=== PATIENT | male | born 1980 | race Native Hawaiian/Other Pacific Islander ===

== ENCOUNTER 2021-01-07 03:15 | Emergency (ER) | payer OTHER ==
[~2021-01-07] VITALS: Ht 182.9 cm; Wt 77.1 kg
[2021-01-07 04:10] LABS: PLATELET COUNT 334 K/uL (142-355)
[2021-01-07 04:14] LABS: POTASSIUM 3.2 mmol/L (3.6-5.2)
[2021-01-07 05:45] VITALS: BP 123/76
== END 2021-01-07 06:10 | disposition short-term general hospital (02) ==
LOC: ED 03:21
PROVIDERS: Family Medicine
PROC: 0W9900Z Drainage of Right Pleural Cavity with Drainage Device, Open Approach (ICD-10-PCS; principal; 2021-01-07)
PROC: 0T9B70Z Drainage of Bladder with Drainage Device, Via Natural or Artificial Opening (ICD-10-PCS; 2021-01-07)
DX: S27.0XXA Traumatic pneumothorax, initial encounter (principal); S42.191A Fracture of other part of scapula, right shoulder, initial encounter for closed fracture; S22.41XA Multiple fractures of ribs, right side, initial encounter for closed fracture; S32.018A Other fracture of first lumbar vertebra, initial encounter for closed fracture; S32.028A Other fracture of second lumbar vertebra, initial encounter for closed fracture; S32.038A Other fracture of third lumbar vertebra, initial encounter for closed fracture; S32.048A Other fracture of fourth lumbar vertebra, initial encounter for closed fracture; S32.058A Other fracture of fifth lumbar vertebra, initial encounter for closed fracture; S01.81XA Laceration without foreign body of other part of head, initial encounter; V57.0XXA Driver of pick-up truck or van injured in collision with fixed or stationary object in nontraffic accident, initial encounter; Y92.89 Other specified places as the place of occurrence of the external cause
CPT/HCPCS: 36415; 51702; 80053; 80307; 80320; 81000; 85027; 96360; 96361; 96365; 96374; 96375; 99285; J2270; J2543; J7040

== ENCOUNTER 2021-01-20 19:21 | Emergency (ER) | payer OTHER ==
[~2021-01-20] VITALS: Ht 182.9 cm; Wt 102.1 kg
[2021-01-20 19:45] VITALS: TEMP 98.1
[2021-01-20 21:30] VITALS: BP 132/78
== END 2021-01-20 21:30 | disposition home or self-care (01) ==
LOC: ED 19:21
DX: S22.41XA Multiple fractures of ribs, right side, initial encounter for closed fracture (principal); N20.0 Calculus of kidney
CPT/HCPCS: 96372; 99283; J1885; J2175; J2405; J2550

== ENCOUNTER 2021-01-22 16:25 | Emergency (ER) | payer OTHER ==
[~2021-01-22] VITALS: Ht 182.9 cm; Wt 104.3 kg
[2021-01-22 16:33] VITALS: BP 150/99; TEMP 97.4
== END 2021-01-22 17:53 | disposition home or self-care (01) ==
LOC: ED 16:25
DX: S22.41XA Multiple fractures of ribs, right side, initial encounter for closed fracture (principal); S42.001A Fracture of unspecified part of right clavicle, initial encounter for closed fracture; S32.018A Other fracture of first lumbar vertebra, initial encounter for closed fracture
CPT/HCPCS: 99282

== ENCOUNTER 2021-05-25 11:39 | Emergency (ER) | payer OTHER ==
[~2021-05-25] VITALS: Ht 182.9 cm; Wt 104.3 kg
[2021-05-25 11:48] LABS: PLATELET COUNT 370 K/uL (142-355)
[2021-05-25 12:04] LABS: POTASSIUM 3.5 mmol/L (3.6-5.2); SODIUM 141 mmol/L (136-145)
[2021-05-25 15:00] VITALS: BP 155/95; TEMP 98
== END 2021-05-25 15:25 | disposition home or self-care (01) ==
LOC: ED 11:39
PROVIDERS: Emergency Medicine Emergency Medical Services
DX: M62.838 Other muscle spasm (principal); V49.9XXA Car occupant (driver) (passenger) injured in unspecified traffic accident, initial encounter; Y92.9 Unspecified place or not applicable
CPT/HCPCS: 36415; 80053; 80307; 80320; 81000; 82550; 82553; 84484; 85027; 85379; 93005; 96360; 96375; 99284; J1200

== ENCOUNTER 2021-08-28 03:00 | Emergency (ER) | payer OTHER ==
[~2021-08-28] VITALS: Ht 190.5 cm; Wt 91.6 kg
[2021-08-28 03:15] VITALS: TEMP 98.3
[2021-08-28 04:28] LABS: PLATELET COUNT 253 K/uL (142-355)
[2021-08-28 04:48] LABS: POTASSIUM 3.6 mmol/L (3.6-5.2)
[2021-08-28 07:32] VITALS: BP 148/84
== END 2021-08-28 07:33 | disposition home or self-care (01) ==
LOC: ED 03:00
PROVIDERS: Emergency Medicine Emergency Medical Services
DX: N13.2 Hydronephrosis with renal and ureteral calculous obstruction (principal); F19.10 Other psychoactive substance abuse, uncomplicated
CPT/HCPCS: 36415; 80053; 80307; 81000; 82150; 83690; 85027; 96360; 96375; 99284; J1885; J2405